=== PATIENT | male | born 1985 | race Caucasian/White ===

== ENCOUNTER 2016-11-20 02:43 | Emergency (ER) | payer SELFPAY ==
--- NOTE | 2016-11-20 02:45 | EDM.PDOC ---
ED HISTORY OF PRESENT ILLNESS - General Chief Complaint: Chest Pain Stated Complaint: [facility] Time Seen by Provider: 11/20/16 02:45 - History of Present Illness INITIAL COMMENTS - FREE TEXT/NARRATIVE: 31-year-old male presents emergency room with chest pain. The pain was fairly sudden onset has been going on little over an hour is fairly mild he rates it at worst it is a 3/10. He is quite anxious. He has a history of anxiety problems. The patient stayed up late watching movies. He did try to go to bed but this woke him up. He denies any drug or alcohol use he has been clean for nearly a year. He has no prior history of heart problems. - Related Data Allergies/ADRs: Allergies Allergy/AdvReac Type Severity Reaction Status Date / Time No Known Allergies Allergy Verified 11/20/16 02:50 Home Meds: Home Meds . [No Known Home Meds] 11/20/16 [History] Past Medical History - Past Health History Medical/Surgical History: Denies Medical/Surgical History Neurological History: Reports: Seizure Other Neuro History: ? head injury - Past Surgical History Neurological Surgical History: Reports: Lumbar spine Social & Family History - Tobacco Use Smoking Status *Q: Current Every Day Smoker Years of Tobacco use: 6 Packs/Tins Daily: 0.5 - Caffeine Use Caffeine Use: Reports: None - Alcohol Use Days Per Week of Alcohol Use: 3 Number of Drinks Per Day: 5 Total Drinks Per Week: 15 - Recreational Drug Use Recreational Drug Use: No ED ROS GENERAL - Review of Systems Review Of Systems: See Below Constitutional: Reports: no symptoms HEENT: Reports: No symptoms Respiratory: Reports: no symptoms. Denies: shortness of breath, wheezing, cough , sputum Cardiovascular: Reports: Chest pain. Denies: Dyspnea on exertion, Palpitations GI/Abdominal: Reports: No symptoms : Reports: no symptoms ED EXAM, GENERAL - Physical Exam Exam: See Below Exam Limited By: No limitations General Appearance: anxious Head: atraumatic, normocephalic Neck: normal inspection, supple, non-tender, full range of motion Respiratory/Chest: no respiratory distress, lungs clear, normal breath sounds Cardiovascular: regular rate, rhythm, no edema, no murmur GI/Abdominal: normal bowel sounds, soft, non tender Extremities: normal inspection, non-tender, no pedal edema Neurological: alert, oriented, CN II-XII intact, normal cognition, normal reflexes, no motor/sensory deficits Skin Exam: Warm, Dry EKG INTERPRETATION EKG Date: 11/20/16 Rhythm: NSR Redford: normal P-wave: present QRS: other (he has what looks like a right bundle branch block developing) ST-T: other (he has nonspecific nondiagnostic ST changes) DC/PQ Interval: has developed first-degree AV block EKG Interpretation Comments: abnormal Course - Vital Signs Last Recorded V/S: Last Vital Signs Temp 36.6 C 11/20/16 02:44 Pulse 62 11/20/16 02:44 Resp 14 11/20/16 02:44 BP 133/69 11/20/16 03:53 Pulse Ox 99 11/20/16 02:44 - Orders/Labs/Meds Orders: Active Orders 24 hr Category Date Time Status EKG Documentation Completion [RC] ASDIRECTED Care 11/20/16 03:30 Active EKG Documentation Completion [RC] STAT Care 11/20/16 02:51 Active EKG Documentation Completion [RC] STAT Care 11/20/16 03:59 Active Chest 1V Frontal [CR] Stat Exams 11/20/16 03:07 Taken Labs: Laboratory Tests 11/20/16 11/20/16 11/20/16 Range/Units 03:20 03:20 03:20 WBC 5.56 (4.23-9.07) K/mm3 RBC 3.98 L (4.63-6.08) M/mm3 Hgb 11.4 L (13.7-17.5) gm/L Hct 33.7 L (40.1-51.0) % MCV 84.7 (79.0-92.2) fl MCH 28.6 (25.7-32.2) pg MCHC 33.8 (32.2-35.5) g/dl RDW Std Deviation 39.0 (35.1-43.9) fL Plt Count 193 (163-337) K/mm3 MPV 10.5 (9.4-12.3) fl Neutrophils % (Manual) 58 (40-60) % Band Neutrophils % 0 (0-10) % Lymphocytes % (Manual) 31 (20-40) % Atypical Lymphs % 0 % Monocytes % (Manual) 8 (2-10) % Eosinophils % (Manual) 3 (0.8-7.0) % Basophils % (Manual) 0 L (0.2-1.2) Platelet Estimate Adequate Plt Morphology Comment Normal RBC Morph Comment Normal ESR (0-15) mm/hr PT 11.2 (8.0-13.0) SECONDS INR 1.03 APTT 30 (22-36) SECONDS D-Dimer, Quantitative (0.19-0.59) mg/L Puncture Site ABG pH (7.35-7.45) ABG pCO2 (35.0-45.0) mmHg ABG pO2 (80.0-100.0) mmHg ABG HCO3 (22.0-26.0) meq/L ABG O2 Saturation (96.0-97.0) % ABG Base Excess (-2-2.0) Karl Test A-a Gradient mmHg FiO2 (21.00-100.00) % Sodium 134 L (136-145) mEq/L Potassium 3.6 (3.5-5.1) mEq/L Chloride 97 L (98-107) mEq/L Carbon Dioxide 28 (21-32) mEq/L Anion Gap 12.6 (5-15) BUN 13 (7-18) mg/dL Creatinine 1.0 (0.7-1.3) mg/dL Est Cr Clr Drug Dosing 100.07 mL/min Estimated GFR (MDRD) > 60 (>60) mL/min BUN/Creatinine Ratio 13.0 L (14-18) Glucose 105 (74-106) mg/dL Calcium 8.9 (8.5-10.1) mg/dL Total Bilirubin 0.3 (0.2-1.0) mg/dL AST 34 (15-37) U/L ALT 33 (16-63) U/L Alkaline Phosphatase 89 (46-116) U/L Troponin I < 0.017 (0.00-0.056) ng/mL Total Protein 7.0 (6.4-8.2) g/dl Albumin 3.6 (3.4-5.0) g/dl Globulin 3.4 gm/dL Albumin/Globulin Ratio 1.1 (1-2) Urine Opiates Screen (NEGATIVE) Ur Buprenorphine Scrn (NEGATIVE) Ur Oxycodone Screen (NEGATIVE) Urine Methadone Screen (NEGATIVE) Ur Propoxyphene Screen (NEGATIVE) Ur Barbiturates Screen (NEGATIVE) Ur Tricyclics Screen (NEGATIVE) Ur Phencyclidine Scrn (NEGATIVE) Ur Amphetamine Screen (NEGATIVE) U Methamphetamines Scrn (NEGATIVE) U Benzodiazepines Scrn (NEGATIVE) U Cocaine Metab Screen (NEGATIVE) U Marijuana (THC) Screen (NEGATIVE) 11/20/16 11/20/16 11/20/16 Range/Units 03:20 03:20 04:23 WBC (4.23-9.07) K/mm3 RBC (4.63-6.08) M/mm3 Hgb (13.7-17.5) gm/L Hct (40.1-51.0) % MCV (79.0-92.2) fl MCH (25.7-32.2) pg MCHC (32.2-35.5) g/dl RDW Std Deviation (35.1-43.9) fL Plt Count (163-337) K/mm3 MPV (9.4-12.3) fl Neutrophils % (Manual) (40-60) % Band Neutrophils % (0-10) % Lymphocytes % (Manual) (20-40) % Atypical Lymphs % % Monocytes % (Manual) (2-10) % Eosinophils % (Manual) (0.8-7.0) % Basophils % (Manual) (0.2-1.2) Platelet Estimate Plt Morphology Comment RBC Morph Comment ESR 22 H (0-15) mm/hr PT (8.0-13.0) SECONDS INR APTT (22-36) SECONDS D-Dimer, Quantitative 0.35 (0.19-0.59) mg/L Puncture Site ABG pH (7.35-7.45) ABG pCO2 (35.0-45.0) mmHg ABG pO2 (80.0-100.0) mmHg ABG HCO3 (22.0-26.0) meq/L ABG O2 Saturation (96.0-97.0) % ABG Base Excess (-2-2.0) Karl Test A-a Gradient mmHg FiO2 (21.00-100.00) % Sodium (136-145) mEq/L Potassium (3.5-5.1) mEq/L Chloride (98-107) mEq/L Carbon Dioxide (21-32) mEq/L Anion Gap (5-15) BUN (7-18) mg/dL Creatinine (0.7-1.3) mg/dL Est Cr Clr Drug Dosing mL/min Estimated GFR (MDRD) (>60) mL/min BUN/Creatinine Ratio (14-18) Glucose (74-106) mg/dL Calcium (8.5-10.1) mg/dL Total Bilirubin (0.2-1.0) mg/dL AST (15-37) U/L ALT (16-63) U/L Alkaline Phosphatase (46-116) U/L Troponin I (0.00-0.056) ng/mL Total Protein (6.4-8.2) g/dl Albumin (3.4-5.0) g/dl Globulin gm/dL Albumin/Globulin Ratio (1-2) Urine Opiates Screen Negative (NEGATIVE) Ur Buprenorphine Scrn Negative (NEGATIVE) Ur Oxycodone Screen Negative (NEGATIVE) Urine Methadone Screen Negative (NEGATIVE) Ur Propoxyphene Screen Negative (NEGATIVE) Ur Barbiturates Screen Negative (NEGATIVE) Ur Tricyclics Screen Negative (NEGATIVE) Ur Phencyclidine Scrn Negative (NEGATIVE) Ur Amphetamine Screen Negative (NEGATIVE) U Methamphetamines Scrn Negative (NEGATIVE) U Benzodiazepines Scrn Negative (NEGATIVE) U Cocaine Metab Screen Negative (NEGATIVE) U Marijuana (THC) Screen Negative (NEGATIVE) 11/20/16 11/20/16 Range/Units 05:20 06:40 WBC (4.23-9.07) K/mm3 RBC (4.63-6.08) M/mm3 Hgb (13.7-17.5) gm/L Hct (40.1-51.0) % MCV (79.0-92.2) fl MCH (25.7-32.2) pg MCHC (32.2-35.5) g/dl RDW Std Deviation (35.1-43.9) fL Plt Count (163-337) K/mm3 MPV (9.4-12.3) fl Neutrophils % (Manual) (40-60) % Band Neutrophils % (0-10) % Lymphocytes % (Manual) (20-40) % Atypical Lymphs % % Monocytes % (Manual) (2-10) % Eosinophils % (Manual) (0.8-7.0) % Basophils % (Manual) (0.2-1.2) Platelet Estimate Plt Morphology Comment RBC Morph Comment ESR (0-15) mm/hr PT (8.0-13.0) SECONDS INR APTT (22-36) SECONDS D-Dimer, Quantitative (0.19-0.59) mg/L Puncture Site Lt radial ABG pH 7.38 (7.35-7.45) ABG pCO2 48.6 H (35.0-45.0) mmHg ABG pO2 44.0 L (80.0-100.0) mmHg ABG HCO3 27.9 H (22.0-26.0) meq/L ABG O2 Saturation 87.6 L (96.0-97.0) % ABG Base Excess 2.7 H (-2-2.0) Karl Test Positive A-a Gradient 36 mmHg FiO2 21.00 (21.00-100.00) % Sodium (136-145) mEq/L Potassium (3.5-5.1) mEq/L Chloride (98-107) mEq/L Carbon Dioxide (21-32) mEq/L Anion Gap (5-15) BUN (7-18) mg/dL Creatinine (0.7-1.3) mg/dL Est Cr Clr Drug Dosing mL/min Estimated GFR (MDRD) (>60) mL/min BUN/Creatinine Ratio (14-18) Glucose (74-106) mg/dL Calcium (8.5-10.1) mg/dL Total Bilirubin (0.2-1.0) mg/dL AST (15-37) U/L ALT (16-63) U/L Alkaline Phosphatase (46-116) U/L Troponin I < 0.017 (0.00-0.056) ng/mL Total Protein (6.4-8.2) g/dl Albumin (3.4-5.0) g/dl Globulin gm/dL Albumin/Globulin Ratio (1-2) Urine Opiates Screen (NEGATIVE) Ur Buprenorphine Scrn (NEGATIVE) Ur Oxycodone Screen (NEGATIVE) Urine Methadone Screen (NEGATIVE) Ur Propoxyphene Screen (NEGATIVE) Ur Barbiturates Screen (NEGATIVE) Ur Tricyclics Screen (NEGATIVE) Ur Phencyclidine Scrn (NEGATIVE) Ur Amphetamine Screen (NEGATIVE) U Methamphetamines Scrn (NEGATIVE) U Benzodiazepines Scrn (NEGATIVE) U Cocaine Metab Screen (NEGATIVE) U Marijuana (THC) Screen (NEGATIVE) Meds: Medications Discontinued Medications Generic Name Dose Route Start Last Admin Trade Name La PRN Reason Stop Dose Admin Aspirin 324 mg 11/20/16 03:06 11/20/16 03:27 Aspirin PO 11/20/16 03:07 324 mg ONETIME ONE Administration Lorazepam 1 mg 11/20/16 02:50 11/20/16 02:59 Ativan IVPUSH 11/20/16 02:51 1 mg ONETIME ONE Administration Naloxone HCl Confirm 11/20/16 03:08 Narcan Administered 11/20/16 03:09 Dose 2 mg .ROUTE .STK-MED ONE Nitroglycerin 0.4 mg 11/20/16 03:06 11/20/16 03:53 Nitrostat SL 11/20/16 03:17 0.4 mg Q5M PRN Administration Chest Pain Nitroglycerin 0.4 mg 11/20/16 03:52 Nitrostat SL 11/20/16 03:53 ONETIME ONE - Re-Assessments/Exams Free Text/Narrative Re-Assessment/Exam: 11/20/16 03:[address] marinelli at the [facility] ER he's reviewed the first EKG and an old EKG that shows sinus tach clearly is different we've obtained a second EKG is virtually unchanged. The patient rates his pain at 2/10 right now probably at the worst it was a 3/10. He is concerned about EKG and he would like to review with cardiology. 11/20/16 03:57 Dr. Marinelli reviewed the situation and EKGs with Dr. Caceres supervisor mixing healthcare liaison he feels is probably more metabolic and not ischemic at this point we will check another EKG in 30 minutes troponin 2 hours after the first. 11/20/16 07:56 followup troponin negative d-dimer negative. The patient has been observed and when he sleeps his O2 saturation drops. This has been improving over time however the patient is somewhat insistent on going home at this point. Patient understands he needs a cardiac evaluation and it is strongly recommended that he have sleep studies done he needs to establish with a regular provider. Departure - Departure Time of Disposition: 07:57 Disposition: Home, Self-Care 01 Clinical Impression: Chest pain, Hypoxia, sleep related Referrals: Allyson Bishop PLASTIC EXTRUSION OPERATOR [Primary Care Provider] - Forms: ED Department Discharge Additional Instructions: Return to the emergency room with any questions or problems. Establish with a regular provider. You need sleep studies. You should also consider cardiac echo which is an ultrasound of your heart. Possibly a cardiac stress test. - My Orders Last 24 Hours: My Active Orders 11/20/16 02:51 EKG Documentation Completion [RC] STAT 11/20/16 03:07 Chest 1V Frontal [CR] Stat 11/20/16 03:30 EKG Documentation Completion [RC] ASDIRECTED 11/20/16 03:59 EKG Documentation Completion [RC] STAT - Assessment/Plan Last 24 Hours: My Active Orders 11/20/16 02:51 EKG Documentation Completion [RC] STAT 11/20/16 03:07 Chest 1V Frontal [CR] Stat 11/20/16 03:30 EKG Documentation Completion [RC] ASDIRECTED 11/20/16 03:59 EKG Documentation Completion [RC] STAT
[2016-11-20] MEDS ORDERED: LORazepam 2 MG/ML MDV IVPUSH ONE (02:50)
[2016-11-20] MEDS ORDERED: Aspirin 81 MG Tab.Chew PO ONE (03:06)
[2016-11-20] MEDS ORDERED: Nitroglycerin 0.4 MG Tab.SL SL PRN (03:06)
[2016-11-20] MEDS ORDERED: Naloxone 2 MG/2 ML Syringe ONE (03:08)
[2016-11-20] MEDS ORDERED: Nitroglycerin 0.4 MG Tab.SL SL ONE (03:52)
[2016-11-20 08:30] VITALS: BP 146/99
--- NOTE | 2016-11-21 07:36 | CR ---
Chest: Portable view of the chest was obtained. Comparison: Previous chest x-ray of 06/10/13. Heart size and mediastinum are normal. Lungs are clear. Bony structures are unremarkable without acute abnormality. Previous lumbar spine surgery is noted. Mild scoliosis is noted within the spine. Impression: 1. Spine findings which are felt to be incidental. 2. Nothing acute is identified on portable chest x-ray. Diagnostic code #2
== END 2016-11-20 08:25 | disposition home or self-care (01) ==
LOC: JD.ED 02:43
DX: R07.9 Chest pain, unspecified (principal); G47.34 Idiopathic sleep related nonobstructive alveolar hypoventilation; F17.200 Nicotine dependence, unspecified, uncomplicated
CPT/HCPCS: 36415; 36600; 71010; 80053; 82803; 84484; 85025; 85379; 85610; 85652; 85730; 93005; 96374; 99285; A9270; G0478; J2060; 80306; 99284